=== PATIENT | female | born 1985 | race Two or more races ===

== ENCOUNTER 2019-07-02 20:06 | Emergency (ER) | payer SELFPAY ==
[~2019-07-02] VITALS: Ht 165.1 cm; Wt 84.1 kg
[2019-07-02 21:23] VITALS: BP 132/88
[2019-07-02] MEDS ORDERED: BENZONATATE 100 MG CAPSULE PO ONE (21:30)
== END 2019-07-02 21:39 | disposition home or self-care (01) ==
LOC: EMS 20:09
DX: J68.8 Other respiratory conditions due to chemicals, gases, fumes and vapors (principal)